=== PATIENT | male | born 1975 | race Caucasian/White ===

== ENCOUNTER 2017-12-28 14:52 | Emergency (ER) | END 2017-12-28 18:39 | disposition home or self-care (01) ==

== ENCOUNTER 2018-12-26 10:35 | Emergency (ER) | payer MEDICAID ==
[~2018-12-26] VITALS: Ht 177.8 cm; Wt 101.4 kg
[~2018-12-26 10:35] MED LIST: ACET325T33 PO; ASPI-903 PO; BENA40TA56 PO; NAPR-985 PO; SUMA25TA3 PO
[2018-12-26 10:46] VITALS: RESP 20; Ht 177.8 cm; Wt 101.4 kg
[2018-12-26] MEDS ORDERED: KETOROLAC 30 MG INJ IM STA (12:19)
[2018-12-26] MEDS ORDERED: OXYCODONE/ACETAMINOPHEN (5/325) TAB PO ONE (12:30)
[2018-12-26 13:38] VITALS: BP 146/92; PULSE 58
== END 2018-12-26 13:41 | disposition home or self-care (01) ==
LOC: FTE 10:35
DX: G44.209 Tension-type headache, unspecified, not intractable (principal); I10 Essential (primary) hypertension; H35.033 Hypertensive retinopathy, bilateral; Z79.82 Long term (current) use of aspirin; Z87.891 Personal history of nicotine dependence
CPT/HCPCS: 96372; J1885; Z7502; Z7610